=== PATIENT | female | born 1985 | race Caucasian/White ===

== ENCOUNTER 2020-06-25 16:07 | Outpatient (CLI) | payer BC, SELFPAY ==
[2020-06-25] VITALS (7 sets, daily range): BP systolic 143–150; BP diastolic 90–100; PULSE 68–88; RESP 18; TEMP 36.7
--- NOTE | ~2020-06-25 | US_ITS ---
EXAMINATION: US OB follow up DATE: 06/25/2020 17:24 INDICATION: Estimated weight and assess amniotic fluid index. TECHNIQUE: Real-time ultrasound of the pelvis was performed. The interpreting radiologist was not pre sent for the study. COMPARISON: None. FINDINGS: There is a single living fetus in vertex presentation. The placenta is posterior. heart rate i s 144 beats per minute (bpm). The amniotic fluid index is 15.5 cm, which is normal (5th%-95%: 8.1-24 .8 cm at 34 weeks estimated gestational age). The following biometric data were obtained: BPD: 8.7 cm -> 35 weeks 1 days Head circumference: 30.6 cm -> 34 weeks 1 days Abdominal circumference: 29.8 cm -> 33 weeks 5 days Femur length: 6.4 cm -> 32 weeks 6 days These measurements are concordant. Head circumference to abdominal circumference ratio: 1.03 (normal range 0.95-1.11). Estimated weight: 2246 g (+/-) 337 g. or 4 lbs. 15 oz. (+/-) 12 oz. IMPRESSION: 1. Single living fetus in vertex presentation with heart rate of 144 bpm. 2. Gestational age by ultrasound of 34 weeks 0 day(s) +/- 2 week(s) 3 day(s) with ultrasound estimate d date of delivery (YAMEL) of 08/06/2020. Estimated weight is 21st percentile by Hadlock criteria when 08/02/20 is used as the YAMEL. Please correlate with clinical information or earlier ultrasounds f or most accurate YAMEL. 3. Normal amniotic fluid index of 15.5 cm. Reviewed, dictated and finalized at location A. IMPRESSION: 1. Single living fetus in vertex presentation with heart rate of 144 bpm. 2. Gestational age by ultrasound of 34 weeks 0 day(s) +/- 2 week(s) 3 day(s) wi th ultrasound estimated date of delivery (YAMEL) of 08/06/2020. Estimated w eight is 21st percentile by Hadlock criteria when 08/02/20 is used as the YAMEL. P lease correlate with clinical information or earlier ultrasounds for most accur ate YAMEL. 3. Normal amniotic fluid index of 15.5 cm.
[2020-06-25 16:51] LABS: Basophils Percent Auto 0.2 % (0.2-1.2); Eosinophils Percent Auto 0.5 % (0-4.4); Hematocrit 35.5 % (37.0-47.0); Hemoglobin 12.4 g/dL (12.0-15.0); Immature Granulocyte Absolute 0.02 K/mm3 (0.00-0.031); Immature Granulocyte Percent A 0.2 % (0-0.5); Lymphocytes Absolute Auto 2.19 K/mm3 (0.9-3.2); Lymphocytes Percent Auto 25.4 % (18.3-44.2); Mean Corpuscular HGB Conc 34.9 g/dl (32-36); Mean Corpuscular Hemoglobin 29.9 pg (26-34); Mean Corpuscular Volume 85.5 fl (80-100); Mean Platelet Volume 10.9 fl (7.4-10.4); Monocytes Absolute Auto 0.7 K/mm3 (0.1-0.6); Monocytes Percent Auto 8.4 % (2.6-8.5); Neutrophils Absolute Auto 5.6 K/mm3 (1.3-6.7); Neutrophils Percent Auto 65.3 % (45.5-73.1); Platelet Count Result 286 k/mm3 (150-375); Red Blood Count 4.15 M/mm3 (4.2-5.4); Red Cell Distribution Width 12.7 % (11.5-14.5); White Blood Count 8.6 K/mm3 (4.5-10.0)
[2020-06-25 16:57] LABS: Add Urine Microscopic? YES; Amorphous Sediment Urine Few; Appearance Urine Cloudy (Clear); Bacteria Urine Trace /hpf; Bilirubin Urine Negative (Negative); Blood Urine 1+ (Negative); Color Urine Straw (Yellow); Glucose Urine UA Negative (Negative); Ketones Urine Negative (Negative); Leukocyte Esterase Ur Negative LEU/UL (NEGATIVE); Mucus Urine Rare /lpf; Nitrate Urine Negative (Negative); Protein Urine 1+ mg/dL (Negative); RBC Urine 0-2 /hpf (0-2); Specific Grav Ur 1.009 (1.001-1.035); Squamous Epithelial Cell Urine Rare /hpf (Few); Urobilinogen Urine Negative mg/dL (<2.0); WBC Urine 0-3 /hpf (0-3)
[2020-06-25 17:02] LABS: Alanine Aminotransferase 19 U/L (4-35); Albumin Level 3.5 g/dL (3.5-5.1); Alkaline Phosphatase 111 U/L (38-126); Anion Gap 7 mmol/L (8-16); Aspartate Amino Transferase 25 U/L (14-36); Bilirubin,Total 0.4 mg/dL (0.2-1.3); Blood Urea Nitrogen 7 mg/dL (7-17); Calcium 10.3 mg/dL (8.4-10.2); Carbon Dioxide 25 mmol/L (22-30); Chloride 106 mmol/L (98-107); Estimated Glomerular Filt Rate > 60; Glucose 86 mg/dL (65-105); Potassium 3.6 mmol/L (3.4-5.0); Sodium 138 mmol/L (137-145); Uric Acid 6.1 mg/dL (2.5-7.5)
[2020-06-25 17:03] LABS: Atypical Lymphocytes Present; Creatinine Urine 32.3 mg/dL; Platelet Estimate Adequate (Adequate); Total Protein Urine Random 49 mg/dL
== END 2020-06-25 18:05 | disposition home or self-care (01) ==
LOC: ANHOBOP 16:14 → ANHLDR 16:15
PROVIDERS: Visit Provider Obstetrics & Gynecology
DX: O13.3 Gestational [pregnancy-induced] hypertension without significant proteinuria, third trimester (principal); Z3A.34 34 weeks gestation of pregnancy
CPT/HCPCS: 36415; 59025; 76816; 80053; 81001; 82570; 84156; 84550; 85025; 87086; 99199

== ENCOUNTER 2020-07-01 10:54 | Outpatient (CLI) | payer BC, SELFPAY ==
[2020-07-01] VITALS (8 sets, daily range): BP systolic 136–158; BP diastolic 92–107; PULSE 66–80
[2020-07-01 11:23] LABS: Basophils Percent Auto 0.2 % (0.2-1.2); Eosinophils Percent Auto 0.2 % (0-4.4); Hematocrit 37.6 % (37.0-47.0); Hemoglobin 12.8 g/dL (12.0-15.0); Immature Granulocyte Absolute 0.02 K/mm3 (0.00-0.031); Immature Granulocyte Percent A 0.2 % (0-0.5); Lymphocytes Absolute Auto 2.09 K/mm3 (0.9-3.2); Lymphocytes Percent Auto 23.3 % (18.3-44.2); Mean Corpuscular Hemoglobin 29.8 pg (26-34); Mean Corpuscular Volume 87.6 fl (80-100); Mean Platelet Volume 11.2 fl (7.4-10.4); Monocytes Absolute Auto 0.7 K/mm3 (0.1-0.6); Monocytes Percent Auto 7.4 % (2.6-8.5); Neutrophils Absolute Auto 6.2 K/mm3 (1.3-6.7); Neutrophils Percent Auto 68.7 % (45.5-73.1); Platelet Count Result 242 k/mm3 (150-375); Red Blood Count 4.29 M/mm3 (4.2-5.4)
[2020-07-01 11:35] LABS: Alanine Aminotransferase 25 U/L (4-35); Albumin Level 3.6 g/dL (3.5-5.1); Alkaline Phosphatase 125 U/L (38-126); Anion Gap 8 mmol/L (8-16); Aspartate Amino Transferase 29 U/L (14-36); Bilirubin,Total 0.5 mg/dL (0.2-1.3); Blood Urea Nitrogen 6 mg/dL (7-17); Calcium 10.6 mg/dL (8.4-10.2); Carbon Dioxide 25 mmol/L (22-30); Chloride 104 mmol/L (98-107); Estimated Glomerular Filt Rate > 60; Glucose 84 mg/dL (65-105); Potassium 3.9 mmol/L (3.4-5.0); Sodium 137 mmol/L (137-145); Uric Acid 5.9 mg/dL (2.5-7.5)
[2020-07-01 12:17] LABS: Add Urine Microscopic? YES; Appearance Urine Clear (Clear); Bilirubin Urine Negative (Negative); Blood Urine 1+ (Negative); Color Urine Straw (Yellow); Glucose Urine UA Negative (Negative); Ketones Urine Negative (Negative); Leukocyte Esterase Ur Negative LEU/UL (NEGATIVE); Nitrate Urine Negative (Negative); Protein Urine Negative (Negative); RBC Urine 0-2 /hpf (0-2); Specific Grav Ur 1.005 (1.001-1.035); Squamous Epithelial Cell Urine Rare /hpf (Few); Urobilinogen Urine Negative mg/dL (<2.0); WBC Urine 0-3 /hpf (0-3)
[2020-07-01 12:36] LABS: Total Protein Urine Random 30 mg/dL
--- NOTE | 2020-07-01 12:46 | WPDOBADMIT ---
Obstetrics - Admit Note Admission Note: 34 y/o G1 at 35 4/7 weeks here for NST, labs, bp monitoring. No headaches, no visual field disturbance, no epigastric / RUQ pain. No leg edema. Good movement. Diagnoses of mild preeclampsia and intrahepatic cholestasis of . AVSS (150s/90s) NST reactive TOCO: no contractions ABD soft, nontender, gravid, vertex EXT nontender Cervix FT/50/-2 in office this morning. Home on nifedepine XL 30 mg po daily. F/u 3 days for bp check. Reviewed risks / benefits / alternatives to steroids.
--- NOTE | 2020-07-01 13:27 | PC.NURSE ---
1234- at bedside, reviewed labs and bp's with pt. Pt sent home with prescription and to come back for steroid injection
== END 2020-07-01 13:15 | disposition home or self-care (01) ==
LOC: ANHOBOP 11:00 → ANHOBPP 11:01
PROVIDERS: Visit Provider Obstetrics & Gynecology
DX: O14.03 Mild to moderate pre-eclampsia, third trimester (principal); Z3A.35 35 weeks gestation of pregnancy; O26.613 Liver and biliary tract disorders in pregnancy, third trimester; K83.1 Obstruction of bile duct
CPT/HCPCS: 36415; 59025; 80053; 81001; 82570; 84156; 84550; 85025; 87086; 99199

== ENCOUNTER 2020-07-05 11:20 | Outpatient (RCR) | payer BC, SELFPAY ==
[2020-07-04] MEDS: BETAMETHASONE SOD PHOS/ACETATE 30 MG/5 ML VIAL 12 MG IM (11:35)
[2020-07-05] MEDS: BETAMETHASONE SOD PHOS/ACETATE 30 MG/5 ML VIAL 12 MG IM (11:26)
== END 2020-07-12 14:40 | disposition home or self-care (01) ==
LOC: ANHOBOP 11:20
PROVIDERS: Visit Provider Obstetrics & Gynecology
DX: O36.8990 Maternal care for other specified fetal problems, unspecified trimester, not applicable or unspecified (principal); Z3A.00 Weeks of gestation of pregnancy not specified
CPT/HCPCS: 96372; J0702

== ENCOUNTER 2020-07-09 11:45 | Inpatient (IN) | payer BC, SELFPAY ==
[2020-07-09] VITALS (83 sets, daily range): BP systolic 120–170; BP diastolic 70–127; PULSE 66–107; RESP 20; TEMP 36.4–36.9; O2SAT 97–100; BMI 32.7
[2020-07-09] MEDS: AMPICILLIN 2 GM/NS 100 ML 2 GM/100 ML BAG IVPB (13:33)
[2020-07-09] MEDS: LACTATED RINGERS 1,000 ML 125 ML IV CONT ×2 (13:34→20:57)
[2020-07-09] MEDS: OXYTOCIN 30 UNITS/NS 500 ML 30 UNITS/500 ML BAG 6 UNITS IV CONT (13:34)
[2020-07-09 13:36] LABS: Basophils Percent Auto 0.2 % (0.2-1.2); Eosinophils Percent Auto 0.2 % (0-4.4); Hematocrit 36.9 % (37.0-47.0); Hemoglobin 13.1 g/dL (12.0-15.0); Immature Granulocyte Absolute 0.03 K/mm3 (0.00-0.031); Immature Granulocyte Percent A 0.3 % (0-0.5); Lymphocytes Absolute Auto 2.01 K/mm3 (0.9-3.2); Lymphocytes Percent Auto 20.7 % (18.3-44.2); Mean Corpuscular HGB Conc 35.5 g/dl (32-36); Mean Corpuscular Hemoglobin 30.2 pg (26-34); Mean Platelet Volume 11.2 fl (7.4-10.4); Monocytes Absolute Auto 0.6 K/mm3 (0.1-0.6); Monocytes Percent Auto 6.3 % (2.6-8.5); Neutrophils Percent Auto 72.3 % (45.5-73.1); Platelet Count Result 275 k/mm3 (150-375); Red Blood Count 4.34 M/mm3 (4.2-5.4); Red Cell Distribution Width 13.1 % (11.5-14.5); White Blood Count 9.7 K/mm3 (4.5-10.0)
--- NOTE | 2020-07-09 13:48 | LDADM ---
This patient, Dolores Franco, was admitted to Labor/Delivery/Recovery 101 on 07/09/20 at 11:45. Plans for labor, pain management and were discussed with patient. Patient/family oriented to hospital policies and general routines including ID bracelet, bed and alarms, visiting hours, pain management, procedures, bathroom and other care routines, personal items, smoking policy, room service/diet and guest tray routines, security routines, and visiting hours. Patient/Family are encouraged to report perceived risks to care and to ask questions if they do not understand what they are told or what they should do. See OBIX for further documentation.
[2020-07-09 13:50] LABS: Alanine Aminotransferase 19 U/L (4-35); Albumin Level 3.4 g/dL (3.5-5.1); Alkaline Phosphatase 111 U/L (38-126); Anion Gap 7 mmol/L (8-16); Aspartate Amino Transferase 20 U/L (14-36); Bilirubin,Total 0.4 mg/dL (0.2-1.3); Blood Urea Nitrogen 7 mg/dL (7-17); Calcium 9.5 mg/dL (8.4-10.2); Carbon Dioxide 24 mmol/L (22-30); Chloride 103 mmol/L (98-107); Estimated CRCL calculation 110 ml/min; Estimated Glomerular Filt Rate > 60; Glucose 95 mg/dL (65-105); Potassium 3.6 mmol/L (3.4-5.0); Sodium 134 mmol/L (137-145)
[2020-07-09 13:51] LABS: Uric Acid 6.5 mg/dL (2.5-7.5)
[2020-07-09] MEDS: AMPICILLIN 1 GM/NS 50 ML 1 GM/50 ML BAG IVPB ×2 (17:29→21:26)
--- NOTE | 2020-07-09 18:10 | P.HP_ITS ---
Obstetrics - Admit Note Admission Note: record reviewed. Additions to the history and/or subsequent changes in the physical findings follow. 34 y/o at 36 4/7 weeks here with a gush of clear fluid at 0945 this morning. SROM confirmed by nursing staff. Feeling some contractions. GBS neg. Preeclampsia with 24 hour urine 1300mg protein. On Procardia XL 30 mg po daily. Also has intrahepatic cholestasis of , on ursodiol 300 mg po bid. Received steroids last week in anticipation of induction of la bor later this week. AVSS. BP 150/100 and stable. NST reactive TOCO contractions every 2-4 min ABD soft, nontender, gravid. Bedside ultrasound by me shows vertex presentation. EXT nontender Cervix 2/50/-2. Gross ROM. A: IUP at 36 4/7 weeks with SROM, preeclampsia, ICP. P: Augmenting labor. Anticipate . Monitor bp. Dr. Lloyd is covering and is aware.
--- NOTE | 2020-07-09 19:43 | WPDANESEPPF ---
Anes - Initial Pre Proc Eval Procedure: labor epidural Date/Time: 07/09/20 19:43 Surgeon: Chandrakant Pittman MD Pre Op Diagnosis: labor pain Pre Op Diagnosis: Labor Patient Data Age: 34 Gender: F Height: 1.68 m Weight: 92 kg Last Vital Signs Temp 36.6 C 07/09/20 18:42 Pulse 77 07/09/20 19:31 Resp 20 07/09/20 18:42 BP 159/95 H 07/09/20 19:31 Allergies Allergy/AdvReac Type Severity Reaction Status Date / Time No Known Allergies Allergy Verified 07/09/20 14:13 Home Medications Medication Instructions Recorded Confirmed Type PNV cmb#95-ferrous fumarate-FA 1 tablet PO DAILY 06/25/20 07/01/20 History [] bupropion HCl [Wellbutrin XL] 150 mg PO QAM 06/25/20 07/01/20 History cholecalciferol (vitamin D3) 25 mcg PO DAILY 07/01/20 07/01/20 History [Vitamin D3] nifedipine 30 mg PO DAILY #30 tablet 07/01/20 07/01/20 Rx pyridoxine (vitamin B6) 25 mg PO DAILY 07/01/20 07/01/20 History Laboratory Tests 07/09/20 07/09/20 07/09/20 13:05 13:05 13:05 WBC 9.7 K/mm3 K/mm3 (4.5-10.0) RBC 4.34 M/mm3 M/mm3 (4.2-5.4) Hgb 13.1 g/dL g/dL (12.0-15.0) Hct 36.9 % L % (37.0-47.0) MCV 85.0 fl fl (80-100) MCH 30.2 pg pg (26-34) MCHC 35.5 g/dl g/dl (32-36) RDW 13.1 % % (11.5-14.5) Plt Count 275 k/mm3 k/mm3 (150-375) MPV 11.2 fl H fl (7.4-10.4) Immature Gran % (Auto) 0.3 % % (0-0.5) Neut % (Auto) 72.3 % % (45.5-73.1) Lymph % (Auto) 20.7 % % (18.3-44.2) Stone % (Auto) 6.3 % % (2.6-8.5) Eos % (Auto) 0.2 % % (0-4.4) Baso % (Auto) 0.2 % % (0.2-1.2) Lymph # (Auto) 2.01 K/mm3 K/mm3 (0.9-3.2) Stone # (Auto) 0.6 K/mm3 K/mm3 (0.1-0.6) Eos # (Auto) 0.0 K/mm3 K/mm3 (0-0.3) Baso # (Auto) 0.0 K/mm3 K/mm3 (0.0-0.1) Abs Immat Gran (auto) 0.03 K/mm3 K/mm3 (0.00-0.031) Absolute Neuts (auto) 7.0 K/mm3 H K/mm3 (1.3-6.7) Absolute Nucleated RBC 0.0 K/mm3 K/mm3 (0.0-0.012) Nucleated RBC % 0.0 % % (0.0-0.2) Sodium Potassium Chloride Carbon Dioxide Anion Gap BUN Creatinine Estim Creat Clear Calc Estimated GFR Glucose Uric Acid 6.5 mg/dL mg/dL (2.5-7.5) Calcium Total Bilirubin AST ALT Alkaline Phosphatase Total Protein Albumin RPR Pending Blood Type Antibody Screen 07/09/20 07/09/20 13:05 13:05 WBC RBC Hgb Hct MCV MCH MCHC RDW Plt Count MPV Immature Gran % (Auto) Neut % (Auto) Lymph % (Auto) Stone % (Auto) Eos % (Auto) Baso % (Auto) Lymph # (Auto) Stone # (Auto) Eos # (Auto) Baso # (Auto) Abs Immat Gran (auto) Absolute Neuts (auto) Absolute Nucleated RBC Nucleated RBC % Sodium 134 mmol/L L mmol/L (137-145) Potassium 3.6 mmol/L mmol/L (3.4-5.0) Chloride 103 mmol/L mmol/L (98-107) Carbon Dioxide 24 mmol/L mmol/L (22-30) Anion Gap 7 mmol/L L mmol/L (8-16) BUN 7 mg/dL mg/dL (7-17) Creatinine 0.70 mg/dL mg/dL (0.7-1.0) Estim Creat Clear Calc 110 ml/min ml/min Estimated GFR > 60 (59 - ) Glucose 95 mg/dL mg/dL (65-105) Uric Acid Calcium 9.5 mg/dL mg/dL (8.4-10.2) Total Bilirubin 0.4 mg/dL mg/dL (0.2-1.3) AST 20 U/L U/L (14-36) ALT 19 U/L U/L (4-35) Alkaline Phosphatase 111 U/L U/L (38-126) Total Protein 7.0 g/dL g/dL (6.3-8.
[2020-07-09] MEDS: ONDANSETRON INJ 4 MG/2 ML VIAL IV PUSH (21:30)
[2020-07-10] VITALS (36 sets, daily range): BP systolic 129–165; BP diastolic 72–129; PULSE 81–176; RESP 16–20; TEMP 36.6–37.1; O2SAT 98–99
[2020-07-10] MEDS: AMPICILLIN 1 GM/NS 50 ML 1 GM/50 ML BAG IVPB (02:54)
[2020-07-10] MEDS: OXYTOCIN 30 UNITS/NS 500 ML 30 UNITS/500 ML BAG 999 UNITS IV CONT (05:10)
--- NOTE | 2020-07-10 05:15 | PM.OBPRVD ---
OB - Delivery Note Procedure Procedure: Patient pushed for a spontaneous vaginal delivery. Nuchal cord x1 was noted and delivered through. The fetus was delivered atraumatically and placed on the maternal abdomen. The cord was clamped and cut after 1 minute of life. The cord was double clamped and cut and a segment of cord was collected for cord gases. Cord blood was collected for blood type and Coomb's testing. The placenta delivered spontaneously. The placenta did not appear intact. Bedside US was performed which showed a large portion of the placenta retained. Manual extraction was attempted and only a small portion of the placenta was removed. Bedside Banjo curettage was performed under direct US guidance. The patient was given an extra gram of ancef. After several passes of curettage and further manual extraction, the remainder of the placenta was removed. A good endometrial strip was noted on US. Good hemostasis was noted. The perineum was inspected and there was a 1st degree perineal laceration. The laceration was repaired with 3-0 vicryl in the usual fashion. The uterus was firm and good hemostasis was noted. The patient and fetus were stable in the delivery room. events: Pre-Eclampsia Intrapartal events: None Induction method: none Delivery augmentation: pitocin Delivery monitor: external FHT Route of delivery: Episiotomy description: None Laceration description: Perineal - 1st Degree Delivery repair: vicryl Specimen: No Estimated blood loss (mL): 700 Anesthesia type: Epidural Disposition: floor () Complications: retained placenta Baby Date of : 07/[birth year] Time of : 04:42 Weeks of gestation at delivery: 36 Infant gender: Male Weight (pounds): 6 Weight (ounces): 14 presentation: vertex position: Right Occiput Anterior Placenta delivery description: Manual Removal and Curettage cord vessel description: Nuchal Cord score one minute: 8 score five minutes: 9
[2020-07-10] MEDS: OXYTOCIN 30 UNITS/NS 500 ML 30 UNITS/500 ML BAG 125 UNITS IV CONT (05:38)
[2020-07-10] MEDS: IBUPROFEN 600 MG TABLET PO ×2 (07:00→13:50)
[2020-07-10 07:24] LABS: Rapid Plasma Reagin Non-Reactive (NonReactive)
[2020-07-10] MEDS: MULTIVIT/MIN/PREN/FOL AC/IRON TABLET 1 TAB PO (09:18)
[2020-07-10] MEDS: DOCUSATE SODIUM 100 MG CAPSULE PO ×2 (09:18→16:10)
[2020-07-10] MEDS: ACETAMINOPHEN 325 MG TABLET 650 MG PO ×3 (09:19→22:25)
[2020-07-10] MEDS: buPROPion HCL XL (24 HR) 150 MG TABCR PO (09:19)
--- NOTE | 2020-07-10 13:00 | PC.NURSE ---
Mother called out for assist with feeding . Consulted with patient, mother reports infant is sleepy and is having difficulties with latching. is inconsistent with eagerness and latching, some feedings infant will be easily awoken and latch other feedings mother struggles to get to latch. Discussed and the 36 week infant, establishing may have its own unique set of circumstances due to their immaturity. infants may be less alert, have less stamina and may have issues with latch, suck and swallow. With the possible inability to have a vigorous suck swallow, infants may not be adequately stimulating mother and/or able to have adequate milk transfer. Pumping should be considered for additional stimulation and to offer EBM as part of supplement if needed. Reviewed feeding cues, frequencies, duration of feedings, feeding elimination flow sheet, and signs of adequate intake. Demonstrated stimulation techniques to wake infant for feeding. Assisted with infant to breast. Reviewed positioning/alignment in cross cradle, holding breast in U hold and guided asymmetrical latch on. Several attempts before infant was able to latch correctly. nursed eagerly with bursts of steady draws and occasional swallowing, followed with long pausing. Reviewed signs of a correct latch, effective nursing and suck swallow ratio. Infant was able to maintain latch without discomfort to mother. Nipple care reviewed. Advised to stimulate infant while feeding to keep infant awake and effectively feeding for increased intake and to assist with maintaining deep latch. Demonstrated how to adjust latch more deeply while feeding. Instructed mother to call out for RN assistance if she is unable to latch for feeding or she has discomfort with nursing. Instructed feeding should be initiated three hours from start of last feeding or if feeding cues are noted before. Mother voiced understanding of information shared.
--- NOTE | 2020-07-10 14:28 | OBPPTRN ---
0825 Patient transferred to post room #280 via W/C. Support person present. Oriented to unit, room, information board, rooming in, admission packet and security measures. Patient verbalizes understanding.
[2020-07-10] MEDS: NIFEdipine 30 MG TAB.ER.24 PO (17:16)
[2020-07-11] MEDS: IBUPROFEN 600 MG TABLET PO ×3 (01:51→14:27)
[2020-07-11] MEDS: ACETAMINOPHEN 325 MG TABLET 650 MG PO ×2 (04:43→11:23)
[2020-07-11 06:05] LABS: Hematocrit 31.3 % (37.0-47.0); Hemoglobin 10.3 g/dL (12.0-15.0)
[2020-07-11 07:35] VITALS: BP 137/89; PULSE 94; RESP 16; TEMP 36.3; O2SAT 97
[2020-07-11] MEDS: buPROPion HCL XL (24 HR) 150 MG TABCR PO (07:51)
[2020-07-11] MEDS: MULTIVIT/MIN/PREN/FOL AC/IRON TABLET 1 TAB PO (07:51)
--- NOTE | 2020-07-11 12:15 | PC.NURSE ---
Consult with pt., mother reports she began supplementing after each feeding during the night. was sleepy and fussy with breastfeedings, infant had gone 5 hours without waking to feed. Discussed the 36 week infant and need for supplementation until infant is more consistent with breastfeedings. Mother is able to independently latch infant with appropriate positioning/alignment. She denies any nipple discomfort, is feeding as required and waking infant to feed if needed. has had several effective feedings followed with supplementation in the past 24 hours, and is currently meeting outcomes for weight, output, jaundice and feeding frequencies. Mother states she feels confident to continue current feeding plan at home. Reviewed transition to breast milk, signs of adequate intake, and engorgement/relief. Discussed when infant may need to increase supplementation and signs when may be ready to decrease/discontinue supplementation. Suggested mother discuss with ICP before decreasing/discontinuing supplementation. Instructed to call ICP if intake/output less than required. Reviewed regular medications mother is taking. Information provided per Meliza. Reviewed community resources on the [facility] website and in the Mom/Baby guide. Information on outpatient services provided. Mother has no further questions at this time.
--- NOTE | 2020-07-11 13:04 | PM.OBPNVD ---
OB - PN: Subj Subjective Date/time seen: 07/11/20 13:04 Narrative: Pain OK, but would like something extra for pain during the night. Wants circumcision for son. Would like to go home. OB - PN: Obj Data Labs CBC & Chem 7: 07/11/20 04:40 07/09/20 13:05 Labs: Laboratory Results - last 24 hr 07/11/20 04:40 Hgb 10.3 L Hct 31.3 L OB - PN A/P Plan Comments: A: PPD#1, doing well. P: Reviewed circumcision. Home to f/u bp check in 1-2 weeks. Exam Psych: Other: AVSS ABD soft, nontender, fundus firm EXT nontender
--- NOTE | 2020-07-11 13:06 | P.DS_ITS ---
DS: Admitting Diagnosis Admitting Diagnosis Admitting Diagnosis: SROM Preeclampsia Intrahepatic cholestasis of DS: Discharge Diagnosis Discharge Diagnosis (1) (normal spontaneous vaginal delivery): Code(s): O80 - Encounter for full-term uncomplicated delivery Status: Acute (2) Pre-eclampsia: Code(s): O14.90 - Unspecified pre-eclampsia, unspecified trimester Status: Inactive (3) Intrahepatic cholestasis of : Code(s): O26.619 - Liver and biliary tract disorders in , unspecified trimester; K83.1 - Obstruction of bile duct Status: Acute (4) Retained placenta: Code(s): O73.0 - Retained placenta without hemorrhage Status: Acute OB - DS: Summary OB Procedures : PIH Mgmt OB Procedures Intrapartum: Spontaneous Vag Delivery and Retained placenta OB Procedures: : None DS: Data Data Completed and Pending Pending studies at discharge: Pending at discharge 07/10/20 04:49 Surgical [PTH] Routine Labs on day of discharge: Labs from last 24 hours 07/11/20 04:40 Hgb 10.3 L Hct 31.3 L Discharge Plan Discharge Attending physician on discharge: Chandrakant Pittman Discharging Clinician: Chandrakant Pittman Patient Disposition: Home, Self-Care Activity: pelvic rest Diet: regular Discharge Instructions: Call or return if temperature above 100.4? F, increased abdominal pain, increased vaginal bleeding or any new problems. Stand Alone Forms: General Discharge Information Follow-up/Referrals: Chandrakant Pittman MD [Physician] - 2 Weeks Discharge Medications: New ibuprofen 600 mg tablet 600 mg PO Q6H PRN (Reason: cramps) Qty: 30 RF: 0 hydrocodone-acetaminophen [Page] 5-325 mg tablet 1 tablet PO Q6H PRN (Reason: pain) Qty: 20 RF: 0 nifedipine [Procardia XL] 30 mg tablet extended release 24hr 30 mg PO DAILY Qty: 30 RF: 1 No Action bupropion HCl [Wellbutrin XL] 150 mg Tablet Extended Release 24 Hr 150 mg PO QAM RF: 0 PNV cmb#95-ferrous fumarate-FA [] 28 mg iron- 800 mcg Tablet 1 tablet PO DAILY RF: 0 nifedipine 30 mg tablet extended release 30 mg PO DAILY Qty: 30 RF: 1 pyridoxine (vitamin B6) 25 mg Tablet 25 mg PO DAILY RF: 0 cholecalciferol (vitamin D3) [Vitamin D3] 25 mcg (1,000 unit) Tablet 25 mcg PO DAILY RF: 0 Date of admission: 07/09/20 11:45 Primary Care Provider: PHYSICIAN,NEWS DEPARTMENT INTERN Admitting Provider: Chandrakant Pittman Attending physician on admission: Chandrakant Pittman
[2020-07-12 10:28] VITALS: BP 139/84; PULSE 90; RESP 16; TEMP 36.7; O2SAT 98
== END 2020-07-11 15:24 | disposition home or self-care (01) | DRG 805 ==
LOC: ANHLDR 12:37 → ANHOB2 07-10 08:33
PROVIDERS: Student in an Organized Health Care Education/Training Program; Admitting Provider Obstetrics & Gynecology; Visit Provider Obstetrics & Gynecology
DX: O42.013 Preterm premature rupture of membranes, onset of labor within 24 hours of rupture, third trimester (principal); K83.1 Obstruction of bile duct; Z37.0 Single live birth; O26.62 Liver and biliary tract disorders in childbirth; Z3A.36 36 weeks gestation of pregnancy; O73.0 Retained placenta without hemorrhage; Z23 Encounter for immunization; O14.94 Unspecified pre-eclampsia, complicating childbirth; O99.214 Obesity complicating childbirth; E66.9 Obesity, unspecified; O69.81X0 Labor and delivery complicated by cord around neck, without compression, not applicable or unspecified; O70.0 First degree perineal laceration during delivery; O99.344 Other mental disorders complicating childbirth; F41.8 Other specified anxiety disorders
CPT/HCPCS: 36415; 80053; 84112; 84550; 85014; 85018; 85025; 86592; 86850; 86900; 86901; 88307; 90471; 90653; A9270; G0008; J0290; J0690; J2405; J2590; J7120